=== PATIENT | male | born 1940 | race Caucasian/White ===

== ENCOUNTER 2024-11-19 10:19 | Outpatient (CLI) | payer MEDICARE, SELFPAY ==
--- NOTE | ~2024-11-19 | XR_ITS ---
XR cervical spine 4-5V Ordering provider: Elma Jackson History: . G95.9 - Disease of spinal cord, unspecified . Comparison: None. FINDINGS: VERTEBRAL BODIES: Normal height and alignment. No visible fracture or subluxation. The dens is intact . DISK SPACES: Narrowing of the disc spaces C5-C6 and C6-C7. Multilevel facet joint disease. Multilevel uncovertebral joint osteoarthritic changes. PARASPINOUS SOFT TISSUES: No prevertebral soft tissue swelling. Right carotid atherosclerotic changes . IMPRESSION: No acute osseous abnormality cervical spine. Multilevel degenerative disc disease. Reviewed, dictated and finalized at location A.
--- NOTE | ~2024-11-19 | CT_ITS ---
EXAMINATION: CT cervical spine wo con DATE: 11/19/2024 10:57 INDICATION: Disease of spinal cord TECHNIQUE: Computed tomography (CT) of the cervical spine was performed without intravenous contrast. Automated exposure control and iterative reconstruction technique were employed. The dose-length pro duct was 285.13 mGy-cm. COMPARISON: None FINDINGS: Alignment is normal. Vertebral body heights are normal. No fracture. Severe disc height loss with deg enerative endplate changes at C5-C6 and C6-C7. Additional mild disc height loss at C3-C4, C4-C5 and C 7-T1. Moderate disc height loss at T1-T2. Atherosclerotic calcifications at the bilateral carotid bul bs. Cervical soft tissues are otherwise unremarkable. Bilateral apices of lungs are clear. The follow ing disc levels are specifically discussed: C2-C3: There is mild bilateral uncovertebral joint osteoarthritis. There is mild right and severe lef t facet joint osteoarthritis. There is mild left neural foraminal stenosis. There is no central canal stenosis. C3-C4: Disc is mildly bulging. There is mild right and moderate left uncovertebral joint osteoarthrit is. There is moderate right and severe left facet joint osteoarthritis. There is mild bilateral neura l foraminal stenosis. There is mild central canal stenosis. C4-C5: Disc is bulging. There is mild left and moderate right uncovertebral joint osteoarthritis. The re is severe left and moderate to severe right facet joint osteoarthritis. There is mild right and mo derate left neural foraminal stenosis. There is moderate central canal stenosis. C5-C6: Posterior disc osteophyte complex. There is moderate left and severe right uncovertebral joint osteoarthritis. There is moderate left and severe right facet joint osteoarthritis. There is moderat e right and mild to moderate left neural foraminal stenosis. There is moderate central canal stenosis . C6-C7: Posterior disc osteophyte complex. There is moderate right and severe left uncovertebral joint osteoarthritis. There is moderate bilateral facet joint osteoarthritis. There is moderate bilateral neural foraminal stenosis. There is moderate central canal stenosis. C7-T1: There is mild bilateral uncovertebral joint osteoarthritis. There is severe bilateral facet pao int osteoarthritis. There is minimal bilateral neural foraminal stenosis. There is no central canal s tenosis. IMPRESSION: 1. Severe lower cervical spondylosis. Reviewed, dictated and finalized at location A.
== END 2024-11-19 10:20 | disposition home or self-care (01) ==
LOC: GOSHIMG 10:20
PROVIDERS: PCP Neurological Surgery; Visit Provider Nurse Practitioner Adult Health
DX: M50.322 Other cervical disc degeneration at C5-C6 level (principal); M50.323 Other cervical disc degeneration at C6-C7 level
CPT/HCPCS: 72050; 72125

== ENCOUNTER 2025-01-13 13:36 | Outpatient (CLI) | payer MEDICARE, SELFPAY ==
--- NOTE | ~2025-01-13 | MR_ITS ---
MRI of the lumbar spine Clinical History: Spinal stenosis Technique: Axial T2-weighted images, and sagittal T1-weighted, T2-weighted, and T2 fat-sat images wer e acquired. Findings: No fracture identified. There is 6 mm anterolisthesis of L4 over L5. No suspicious bone mar row signal reality seen. At L1-L2, there is advanced degenerative disc narrowing. There is disc bulge with severe facet arthro amber, resulting in severe spinal canal stenosis/thecal sac compression. There is severe bilateral ne ural foraminal compromise. At L2-L3, there is moderate degenerative disc narrowing. Disc bulge and severe facet arthropathy resu lt in severe spinal canal stenosis/thecal sac compression and severe bilateral neural foraminal narro wing. At L3-L4, there is advanced degenerative disc narrowing. Disc bulge and severe facet arthropathy resu lt in severe spinal canal stenosis/thecal sac compression and severe bilateral neural foraminal narro wing. At L4-L5, there is disc bulge/uncovering with severe facet arthropathy. There is severe spinal canal stenosis. There is moderate right neural foraminal narrowing, and mild left neural foraminal narrowin g. At L5-S1, there is disc bulge with moderate facet arthropathy. No daren central canal stenosis. There is moderate to severe bilateral neural foraminal narrowing. Paravertebral soft tissues are unremarkable. Impression: Severe degenerative spondylosis throughout the lumbar spine, with multilevel significant canal stenos is and neural foraminal narrowing. Please see details above. Reviewed, dictated and finalized at [facility]. Impression: Severe degenerative spondylosis throughout the lumbar spine, with multilevel si gnificant canal stenosis and neural foraminal narrowing. Please see details abo ve.
--- NOTE | ~2025-01-13 | XR_ITS ---
Lumbosacral Spine: AP and lateral views Clinical History: Pain Findings: There is dextroscoliosis. There is moderate degenerative disc narrowing throughout the lumb ar spine. There is severe facet arthropathy throughout the lumbar spine. No fracture evident. The sac roiliac joints are normally outlined. Impression: Moderate to severe degenerative spondylosis with dextroscoliosis. Reviewed, dictated and finalized at location . Impression: Moderate to severe degenerative spondylosis with dextroscoliosis.
== END 2025-01-13 13:37 | disposition home or self-care (01) ==
LOC: GOSHIMG 13:37
PROVIDERS: PCP Neurological Surgery; Visit Provider Neurological Surgery
DX: M48.062 Spinal stenosis, lumbar region with neurogenic claudication (principal); M47.896 Other spondylosis, lumbar region
CPT/HCPCS: 72110; 72148

== ENCOUNTER 2025-02-12 09:54 | Outpatient (CLI) | payer MEDICARE, SELFPAY ==
--- OUTSIDE RECORDS SUMMARY | 2025-02-12 09:57 | XMS_ITS | Encounter Summary ---
Author Organization [facility] Healthcare Address [address] [place] [address] Care Team Providers Care Receiver/Laborer Name Role Phone Vargas Noland MD Primary Care Provider [phone] Reason for Visit * Reason Onset Date Comments Additional Services Or Orders 02/05/2025 Encounter Details Date Type Department Care Team (Late st Contact Info) Description 02/05/2025 Telephone [facility] [address] [address] Vargas Noland MD [address] [place] [address] Additional Services Or Orders Social History Tobacco Use Types Packs/Day Years Used Date Smoking Tobacco: Never Smokeless Tobacco: Never Alcohol Use Standard Drinks/Week Comments No 0 (1 standard drink = 0.6 oz pur e alcohol) PHQ-2 Answer Date Recorded PHQ-2 Total Score (If total score is 3 or more points, staff should administer the PHQ-9) 0 02/05/2025 Sex and Gender Information Value Date Recorded Sex Assigned at Not on file Legal Sex Male 2:55 PM [employer] Gender Identity Not on file Sexual Orientation Not on file documented as of this encounter Miscellaneous Notes * Telephone Encounter - Ruthann Bhatti RN - 02/11/2025 8:21 AM CDT Order signed 02/05/2025; however, cannot fax order without supporting clinical documentation. 02/05/2025 Office Visit note is pending completion. FYDiane Noland * Telephone Encounter - Mely Chawla - 02/10/2025 2:42 PM CDT Call Back Caller???s Concern: patient called to see if there were any updates on the Rolator? Please let him know. Does message need to be routed? Yes-Action Needed * Addendum Note - Ruthann Bhatti RN - 02/05/2025 1:49 PM CDTAddended by: RUTHANN BHATTI on: 02/05/2025 01:49 PM Modules accepted: Orders * Telephone Encounter - Ruthann Bhatti RN - 02/05/2025 1:47 PM CDT Order pended for signature. Please include documentation of medical necessity in today's Office Visit notes. * Telephone Encounter - Yeni Spivey - 02/05/2025 1:09 PM CDT Call Back Caller???s Concern: Pt has spoken to insurance [facility] is on their list of accepted facilities. Ptsays insurance needs a requisition from the doctor to move forward with payment. Please contact pt with next steps. Does message need to be routed? Yes-Action Needed * Telephone Encounter - Ruthann Bhatti RN - 02/05/2025 12:56 PM CDT Returned call and spoke with patient. Instructed patient to call the number on the back of his insurance card to get the names of in-network durable medical equipment suppliers and contact the officewith the name of his preferred supplier. Patient verbalized understanding and was appreciative of assistance. * Telephone Encounter - Alva Villaseñor - 02/05/2025 12:47 PM CDT Additional Services or Orders Type of Service Requested:Equipment Reason for Request (e.g. condition/symptom, date of COVID exposure if applicable): Difficulty walking Details Regarding Additional Services (e.g. type of home health, type of equipment, type of test, etc.): Rollator transport chair with a seat Where will services be performed? (if outside of the practice, facility name, address, phone/fax offacility): To be recommended Additional Comments: Patient stated the rollator transport chair was discussed during his visit today. Patient would like it covered under his insurance if possible. Please contact patient to advise next steps to obtaining the equipment. Does message need to be routed? Yes-Action Needed documented in this encounter Plan of Treatment Not on file documented as of this encounter Visit Diagnoses Diagnosis Age-related physical debility- Primary Unsteady gait Abnormality of gait documented in this encounter Orders General Supply Count Last Ordered Date First Or dered Date WALKER 1 02/05/2025 documented in this encounter Care Teams Receiver/Laborer Relationship Specialty Start Date End Date [place] [address] PCP - General 10/10/15 documented as of this encounter
--- OUTSIDE RECORDS SUMMARY | 2025-02-12 09:58 | XMS_ITS | Clinical Summary ---
Author Organization [facility] Address [address] [place] [address] Care Team Providers Care Energy Analyst Name Role Phone Vargas Noland MD Primary Care Provider [phone] Allergies No known active allergies Medications multivitamin tablet tablet Take according to otnj-ebc-khplz er package directions 30 6 04/12/20 09 Active aspirin 81 mg enteric coated tablet Take 1 tablet (81 mg total) by mouth daily Active pyridoxine (VITAMIN B-6) 500 mg tablet Take 1 tablet (500 mg total) by mouth daily Active omega 1-ibj-xsg-fish oil (Fish OiL) 1,000 mg (120 mg-180 mg) capsule Active acyclovir (ZOVIRAX) 200 mg capsule Take 1 capsule (200 mg total) by mouth daily 06/05/20 24 Active potassium chloride ER 10 mEq CR tablet Take 1 tablet by mouth once daily 30 tablet 12/30/19 25 Active furosemide (LASIX) 40 mg tablet TAKE 1 TABLET BY MOUTH ONCE DAILY NEEDED FOR SWELLING 30 tablet 12/30/19 25 Active lisinopril-hyd roCHLOROthiazi de (ZESTORETIC) 20-25 mg per tablet Take 1 tablet by mouth once daily 90 tablet 01/05/20 25 Active pregabalin (LYRICA) 75 mg capsule Take 1 capsule (75 mg total) by mouth 2 (two) times a day 60 capsule 02/04/20 25 Active meloxicam (MOBIC) 7.5 mg tablet Take 1 tablet by mouth twice daily as needed for pain 60 tablet 02/02/20 25 Active pregabalin (LYRICA) 75 mg capsule Take 1 capsule by mouth twice daily 60 capsule 01/05/20 25 025 Discontinued meloxicam (MOBIC) 7.5 mg tablet Take 1 tablet by mouth twice daily as needed for pain 60 tablet 01/12/20 25 025 Discontinued Active Problems Problem Noted Date Diagnosed Date Cervical disc disease 02/11/2025 Preoperative clearance 02/11/2025 Gait instability 02/11/2025 Lipid screening 06/07/2024 Assessment & Plan (06/07/2024 8:31 PM DIGITAL CAMPAIGN MANAGER): Screenign labwork ordered and will follow response. Hand paresthesia 06/07/2024 Assessment & Plan (06/07/2024 8:33 PM DIGITAL CAMPAIGN MANAGER): Given symmetrical etiolgoy will check for cervical spine origin sourse and MRI ordered. Continues on lyrica for neuropathic pain. Monitor repsonse to course of steroid pack and will follow respnose. No evidenc eof vascular compromise. BMI 31.0-31.9,adult 06/07/2024 Assessment & Plan (06/07/2024 8:32 PM DIGITAL CAMPAIGN MANAGER): Encoruage 150min/week aerobic exericse. Healthy food chocies. Obesity (BMI 30.0-34.9) 06/07/2024 Assessment & Plan (06/07/2024 8:32 PM DIGITAL CAMPAIGN MANAGER): As above. Medicare annual wellness visit, subsequent 01/20 Assessment & Plan (01/21/2024 10:26 AM CDT): Focus of exam is preventative in nature. Reviewed immunizations, reviewed sun/skin cancer screneing. Reviewed age and comorbid appropriate screening. Reviewed fall prevnetion. Congratulate on active, healthy lifesytle. BETH (acute kidney injury) 01/21/2024 Assessment & Plan (01/21/2024 10:27 AM CDT): Stop furosemide and will montior response. Enocurage hydration and will montior repsonse. Hypertension, essential 01/21/2024 Assessment & Plan (06/07/2024 8:31 PM DIGITAL CAMPAIGN MANAGER): Reviewed use of furosemide for swellign and BP and continues on lisinopril/hctz and will follow response. Potassium aljivvzfrszgbx2g with use of fursoemide. Assessment & Plan (01/21/2024 10:27 AM CDT): Stable on lisinopril/hctz and stable on the exdellent regimen. WIll montio repsons.e Bilateral lower extremity edema 05/14/2023 Spinal stenosis of lumbar re gion with neurogenic claudication 02/19/2023 Assessment & Plan (01/21/2024 10:27 AM CDT): Continue f/u with pain management and chiropractor. Continues on lyrica 75mg bid and will follow response. Resume low dose meloxicam and will follow response. Spondylosis of lumbar region without myelopathy or radiculopathy 02/19/2023 Benign prostatic hypertrophy without urinary obs truction 11/14/2013 Overview (10/03/2016): BPH W/O URINARY OBSTRUCT Encounters Date Type Department Care Team Description 02/05/2025 11:15 AM CDT [facility] Visit [facility] [address] [address] Vargas Noland MD Preoperative clearance (Primary Dx); Cervical disc disease; BMI 31.0-31.9,adult; Obesity (BMI 30.0-34.9); Gait instability 02/05/2025 10:25 AM CDT Lab [facility] [address] [place] [id number] Preoperative examination; Diabetes mellitus type II, controlled 02/05/2025 Telephone [facility] [address] [address] Vargas Noland MD Additional Services Or Orders 02/03/2025 Telephone [facility] [address] [address] Vargas Noland MD 12/11/2024 Telephone [facility] [address] [place] [address] Vargas Noland MD Additional Services Or Orders (Rollator request ) from Last 3 Months Immunizations Immunization Administration Dates Next Due Influenza, Unspecified 07/24/2024(Deferr ed: Patient Refused),05/26/2024(Deferred: Patient Refused),03/01/2024(Deferred: Patient Refused),07/01/2023(Deferred: Patient Refused),06/28/2023(Deferred: Patient Refused),05/21/2022,08/18/2021(Deferred : Patient Refused),07/01/2021(Deferred: Patient Refused),07/05/2020(Deferred: Patient Refused),07/01/2020(Deferred: Patient Refused),07/01/2019(Deferred: Patient Refused),07/05/2017(Deferred: Patient Refused),07/02/2017(Deferred: Patient Refused),07/02/2016(Deferred: Patient Refused),07/02/2016(Deferred: Patient Refused) Pfizer SARS-CoV-2 Monovalent Vaccination (12+ Yrs) PURPLE 05/21/2022 Surgical History Surgery Date Site/Laterality Comments CATARACT EXTRACTION W/ INTRA OCULAR LENS IMPLANT Bilateral 15 months apart Family History Medical History Relation Name Comments No Known Problems Daughter Coronary artery disease Father Suzy nary artery disease; No Known Problems Son 1 COPD Son 2 Relation Name Status Comments Daughter Alive Father (Age 70) Son 1 Alive Son 2 Alive Social History Tobacco Use Types Packs/Day Years Used Date Smoking Tobacco: Never Smokeless Tobacco: Never Tobacco Cessation:Counseling Given: Not Answered Alcohol Use Standard Drinks/Week Comments No 0 (1 standard drink = 0.6 oz pur e alcohol) PHQ-2 Answer Date Recorded PHQ-2 Total Score (If total score is 3 or more points, staff should administer the PHQ-9) 0 02/05/2025 Sex and Gender Information Value Date Recorded Sex Assigned at Not on file Legal Sex Male 2:55 PM DIGITAL CAMPAIGN MANAGER Gender Identity Not on file Sexual Orientation Not on file Obstetrics History Last Filed Vital Signs Vital Sign Reading Time Taken Comments Blood Pressure 116/68 02/05/2025 11:13 AM CDT Pulse 73 02/05/2025 11:13 AM CDT Temperature 36.5 C (97.7 F) 02/05/2025 11:13 AM CDT Respiratory Rate 18 02/05/2025 11:13 AM CDT Oxygen Saturation 98% 02/05/2025 11:13 AM CDT room air Inhaled Oxygen Concentration - - Weight 93.9 kg (207 lb) 02/05/2025 11:13 AM CDT Height 172.7 cm (5' 7.99) 02/05/2025 11:13 AM C DT Body Mass Index 31.48 02/05/2025 11:13 AM CDT Plan of Treatment Health Maintenance Due Date Last Done Comments Albumin Creatinine Ratio, Urine 1938 Dilated Eye Exam 1938 Foot Exam 1938 DTaP/Tdap/Td Vaccine (1 - Tdap) 1949 Hepatitis B Screening 1956 Zoster Vaccine (1 of 2) 1988 Covid-19 Vaccine (5 - 2023-2 5 season) 2024 05/21/2022, 06/01/2021, 10/27/2020, Additional history exists Well Visit 65+ 01/20/2025 01/21/2024, 12/25/2022 Hemoglobin A1C 08/08/2025 02/05/2025 Depression Screening 02/05/2026 02/05/2025, 07/24/2024, 05/26/2024, Additional history exists Fall Risk Assessment 02/05/2026 02/05/2025, 07/24/2024, 05/26/2024, Additional history exists Lipid Panel 02/05/2026 02/05/2025, 07/02, 01/15/2024, Additional history exists eGFR 02/05/2026 02/05/2025, 07/02, 05/21/2024, Additional history exists Influenza Vaccine Discontinued 05/21/2022 Pneumococcal vaccine 65+ Discontinued Procedures Procedure Name Priority Date/Time Associated Diagnosis Comments ECG 12-LEAD Routine 02/11/2025 8:52 AM CDT Preoperative clearance EGFR Routine 02/05/2025 10:25 AM CDT Preoperative examination DIFFERENTIAL AUTO Routine 02/05/2025 10: 25 AM CDT Preoperative examination LIPID PANEL Routine 02/05/2025 10:25 AM CDT Diabetes mellitus type II, controlled HEMOGLOBIN A1C Routine 02/05/2025 10:25 AM CDT Diabetes mellitus type II, controlled COMPREHENSIVE METABOLIC PANEL Routine 02/05/2025 10:25 AM CDT Preoperative examination CBC WITH AUTO DIFFERENTIAL Routine 02/05/2025 10:25 AM CDT Preoperative examination from Last 3 Months Results * ECG 12-LEAD (02/11/2025 8:52 AM CDT) Narrative Vargas Noland MD - 02/11/2025 8:52 AM CDT Vargas Noland MD 02/11/2025 8:53 AM ECG 12 lead Date/Time: 02/11/2025 8:52 AM Performed by: Vargas Noland MD Authorized by: Vargas Noland MD Comparison: not compared with previous ECG Rhythm: sinus rhythm Rate: normal QRS axis: normal Q waves: V1 Comments: NO acute ischemic changes. POssible old changes. us Vargas Noland MD ECG ORDERABLES Edited Re sult - Final * (ABNORMAL) eGFR (02/05/2025 10:25 AM CDT) eGFR 43(L) >=60 mL/min/1. 73 m2 Comment: Interpretive Data Reference Interval Normal >/= 90 mL/min/1.73m2 Mildly decreased* 60 - 89 mL/min/1.73m2 Mildly to moderately decreased 45 - 59 mL/min/1.73m2 Moderately to severely decreased 30 - 44 mL/min/1.73m2 Severely decreased 15 - 29 mL/min/1.73m2 Kidney Failure < 15 mL/min/1.73m2 *Relative to young adult level Estimated glomerular filtration rate is determined by the 2020 CKD-EPI equation recommended by the National Kidney Foundation (A Unifying Approach to GFR Estimation: Recommendations of the NKF-ASK Task Force on Reassessing the Inclusion of Race in Diagnosing Kidney Disease, JASN 2020). The CKD-EPI equation should not be used for patients with unstable renal function and has not been validated in children and those over 70. Current interpretive data was last reviewed 2021. Testing performed by: [address], [address] Blood 02/05/2025 10:2 5 AM CDT 02/05/2025 3:13 PM CDT Vargas Noland MD LAB BLOOD ORDERABLES Sowmya amezquita Result [facility] ([place]) 1 [facility] [place] [address] * (ABNORMAL) Differential, auto (02/05/2025 10:25 AM CDT) Neutrophil abs 5.58 1.50 - 6.50 K/cumm Comment:Testing performed by : [address] [address] Imm gran abs 0.05 0.00 - 0.10 K/cumm [facility] ([place]) Comment:Testing performed by : [address], [address] Lymphocyte abs 1.40 0.80 - 3.30 K/cumm [facility] ([place]) Comment:Testing performed by : [address] [address] Monocyte abs 1.05(H) 0.20 - 0.80 K/cumm [facility] ([place]) Comment:Testing performed by : [facility], [address] [place] [address]., [address] Eosinophil abs 0.21 0.00 - 0.50 K/cumm [facility] ([place]) Comment:Testing performed by : [facility], [address], [place]., [address] Basophil abs 0.05 0.00 - 0.10 K/cumm [facility] ([place]) Comment:Testing performed by : [facility], [address] [place] [address]., [address] Neutrophil pct 66.9 % [facility] ([place]) Comment: Interpretive Data Percent cell count reference ranges are not reported, since discordance with absolute values may lead to misinterpretation of CBC data. Current Interpretive Data was last revised on 2017. Testing performed by: [address] [address] Imm gran pct 0.6 % [facility] ([place]) Comment: Interpretive Data Percent cell count reference ranges are not reported, since discordance with absolute values may lead to misinterpretation of CBC data. Current Interpretive Data was last revised on 2017. Testing performed by: [address] [address] Lymphocyte pct 16.8 % [facility] ([place]) Comment: Interpretive Data Percent cell count reference ranges are not reported, since discordance with absolute values may lead to misinterpretation of CBC data. Current Interpretive Data was last revised on 2017. Testing performed by: [address] [address] Monocyte pct 12.6 % [facility] ([place]) Comment: Interpretive Data Percent cell count reference ranges are not reported, since discordance with absolute values may lead to misinterpretation of CBC data. Current Interpretive Data was last revised on 2017. Testing performed by: [address] [address] Eosinophil pct 2.5 % [facility] ([place]) Comment: Interpretive Data Percent cell count reference ranges are not reported, since discordance with absolute values may lead to misinterpretation of CBC data. Current Interpretive Data was last revised on 2017. Testing performed by: [address], [address] Basophil pct 0.6 % [facility] ([place]) Comment: Interpretive Data Percent cell count reference ranges are not reported, since discordance with absolute values may lead to misinterpretation of CBC data. Current Interpretive Data was last revised on 2017. Testing performed by: [address], [address] Blood 02/05/2025 10:2 5 AM CDT 02/05/2025 2:32 PM CDT Vargas Noland MD LAB BLOOD ORDERABLES Sowmya bia Result [facility] ([place]) 1 [facility] [place] [address] * (ABNORMAL) CBC with auto differential (02/05/2025 10:25 AM CDT) WBC 8.34 3.80 - 9.90 K/cumm Comment:Testing performed by : [address], [address] Hgb 14.0 13.0 - 17.5 g/dL [facility] ([place]) Comment:Testing performed by : [address], [address] Hct 42.8 38.9 - 50.3 % [facility] ([place]) Comment:Testing performed by : [address], [address] Plt 214 150 - 400 K/cumm [facility] ([place]) Comment:Testing performed by : [address], [address] MPV 12.6(H) 9.1 - 12.3 fL [facility] ([place]) Comment:Testing performed by : [address], [address] RBC 4.38 4.30 - 5.80 M/cumm [facility] ([place]) Comment:Testing performed by : [address], [address] MCV 97.7(H) 81.3 - 96.4 fL [facility] ([place]) Comment:Testing performed by : [address], [address] MCH 32.0 27.1 - 33.3 pg [facility] ([place]) Comment:Testing performed by : [address] [place]., [address] MCHC 32.7 32.3 - 35.7 g/dL [facility] ([place]) Comment:Testing performed by : [facility], [address] [place] [address]., [address] RDW CV 12.9 11.1 - 14.9 % [facility] ([place]) Comment:Testing performed by : [facility], [address] [place] [address], [address] RDW SD 46.6 35.7 - 48.1 fL [facility] ([place]) Comment:Testing performed by : [facility], [address] [place] [address], [address] NRBC abs 0.00 0.00 - 0.01 K/cumm [facility] ([place]) Comment:Testing performed by : [facility], [address] [place] [address], [address] Blood 02/05/2025 10:2 5 AM CDT 02/05/2025 2:32 PM CDT Vargas Noland MD LAB BLOOD ORDERABLES Sowmya amezquita Result [facility] ([place]) 1 [facility] Department [place] [address] * (ABNORMAL) Hemoglobin A1c (02/05/2025 10:25 AM CDT) Hgb A1C 6.7(H) 4.0 - 5.6 % Comment:Testing performed by : [address] [address] Estimated Average Glucose 146 mg/dL [facility] ([place]) Comment: The ADA recommends reporting an estimated Average Glucose (eAG) with all Hemoglobin A1c results using the equation derived from a study of 507 normal and diabetic adults. Minority populations were underrepresented and children were not included. (Diabetes Care 31:5785-5855, 2008). The eAG is not equivalent to a fasting glucose. Testing performed by: [address], [address] Blood 02/05/2025 10:2 5 AM CDT 02/05/2025 2:32 PM CDT us Vargas Noland MD LAB BLOOD ORDERABLES Sowmya bia Result [facility] ([place]) 1 [facility] [place] [address] * (ABNORMAL) Lipid panel (02/05/2025 10:25 AM CDT) Cholesterol 220(H) 30 - 199 mg/dL Comment: Interpretive Data Ages < or = 19 years Acceptable: <170 mg/dL Borderline high: 170-199 mg/dL High: >or= 200 mg/dL Ages > or = 20 years Desirable: <200 mg/dL Borderline high: 200-239 mg/dL High: >or= 240 mg/dL Literature References: 1. Expert Panel on Integrated Guidelines for Cardiovascular Health and Risk Reduction in Children and Adolescents. Pediatrics 2011;128:S213 2. NCEP Expert Panel. Circulation 2004;110:227 Current Interpretive Data was last revised on 2018. Testing performed by: [address] [address] Triglycerides 148 <=149 mg/dL [facility] ([place]) Comment: Interpretive Data Ages < or = 9 years Acceptable: <75 mg/dL Borderline high: 75-99 mg/dL High: >or= 100 mg/dL Ages 10 to 20 years Acceptable: <90 mg/dL Borderline high: 90-129 mg/dL High: >or= 130 mg/dL Ages > or = 20 years Desirable: <150 mg/dL Borderline high: 150-199 mg/dL High: 200-499 mg/dL Very high: >or= 499 mg/dL Literature References: 1. Expert Panel on Integrated Guidelines for Cardiovascular Health and Risk Reduction in Children and Adolescents. Pediatrics 2011;128:S213 2. NCEP Expert Panel. Circulation 2004;110:227 Current Interpretive Data was last revised on 2018. Testing performed by: [facility], [address] [place] [address]., [address] HDL 41 >=40 mg/dL [facility] ([place]) Comment: Interpretive Data Ages < or = 19 years Acceptable: >45 mg/dL Borderline low: 40-45 mg/dL Low: <40 mg/dL Ages > or = 20 years Desirable: >or= 60 mg/dL Low: <40 mg/dL Literature References: 1. Expert Panel on Integrated Guidelines for Cardiovascular Health and Risk Reduction in Children and Adolescents. Pediatrics 2011;128:S213 2. NCEP Expert Panel. Circulation 2004;110:227 Current Interpretive Data was last revised on 2018. Testing performed by: [address] [address] LDL, calculated 152(H) <=129 mg/dL [facility] ([place]) Comment: Interpretive Data Ages < or = 19 years Acceptable: <110 mg/dL Borderline high: 110-129 mg/dL High: >or= 130 mg/dL Ages > or = 20 years Optimal: <100 mg/dL Near optimal: 100-129 mg/dL Borderline high: 130-159 mg/dL High: >160 mg/dL Calculated using the Yossi LDL-C estimating equation. This equation was implemented on 2024. Prior to this date LDL-C was estimated using the Friedewald equation. Literature References: 1. Expert Panel on Integrated Guidelines for Cardiovascular Health and Risk Reduction in Children and Adolescents. Pediatrics 2011;128:S213 2. NCEP Expert Panel. Circulation 2004;110:227 3. Yossi Hills et al. CHELSEA Cardiol. 2019October 29;5(5):540-548. doi: 10.1001/jamacardio.2020.0013 Current Interpretive Data was last revised on 2024. Testing performed by: [facility], [address] [place] [address]., [address] Non-HDL Cholesterol 179 mg/dL [facility] ([place]) Comment: Interpretive Data Ages < or = 19 years Acceptable: <120 mg/dL Borderline high: 120-144 mg/dL High: >145 mg/dL Ages > or = 20 years When triglycerides are >200 mg/dL, Non-HDL cholesterol is a secondary target of therapy with treatment goals that are 30 mg/dL greater than the LDL cholesterol target. Literature References: 1. Expert Panel on Integrated Guidelines for Cardiovascular Health and Risk Reduction in Children and Adolescents. Pediatrics 2011;128:S213 2. NCEP Expert Panel. Circulation 2004;110:227 Current Interpretive Data was last revised on 2018. Testing performed by: [facility], [address] [place] [address]., [address] Chol/HDL ratio 5 [facility] ([place]) Comment:Testing performed by : [facility], [address] [place] [address]., [address] Blood 02/05/2025 10:2 5 AM CDT 02/05/2025 2:32 PM CDT Vargas Noland MD LAB BLOOD ORDERABLES Sowmya l Result [facility] ([place]) 1 [facility] Department [place] [address] * (ABNORMAL) Comprehensive metabolic panel (02/05/2025 10:25 AM CDT) Sodium 140 135 - 145 mmol/L Comment:Testing performed by : [address], [address] Potassium, pl 4.0 3.3 - 4.9 mmol/L [facility] ([place]) Comment:Testing performed by : [address], [address] Chloride 100 97 - 110 mmol/L [facility] ([place]) Comment:Testing performed by : [address], [address] CO2 24 22 - 32 mmol/L [facility] ([place]) Comment:Testing performed by : [address], [address] Anion gap 16(H) 2 - 15 mmol/L [facility] ([place]) Comment:Testing performed by : [address], [address] BUN 54(H) 6 - 25 mg/dL [facility] ([place]) Comment:Testing performed by : [address], [address] Creatinine 1.56(H) 0.80 - 1.30 mg/dL [facility] ([place]) Comment:Testing performed by : [facility], [address], [place]., [address] Glucose 97 70 - 199 mg/dL [facility] ([place]) Comment: Interpretive Data Fasting glucose >/= 126 mg/dl is diagnostic for diabetes. Fasting is defined as no caloric intake for at least 8 hours. Fasting glucose between 100 mg/dl to 125 mg/dl is diagnostic of prediabetes. In a patient with classic symptoms of hyperglycemia or hyperglycemic crisis, a random glucose >/= 200 mg/dl is diagnostic for diabetes. In the absence of unequivocal hyperglycemia, results should be confirmed by repeat testing. The classification and Diagnosis of Diabetes Diabetes Care 2021; 46: S19-S40. Current interpretive data was last revised 2022. Testing performed by: [facility], [address] [place] [address]., [address] Calcium 9.6 8.5 - 10.3 mg/dL [facility] ([place]) Comment:Testing performed by : [address], [address] Bilirubin, total 0.4 0.1 - 1.2 mg/dL [facility] ([place]) Comment:Testing performed by : [address], [address] Protein, pl 7.1 6.5 - 8.5 g/dL [facility] ([place]) Comment:Testing performed by : [address], [address] Albumin 4.3 3.5 - 5.0 g/dL [facility] ([place]) Comment:Testing performed by : [address], [address] Alk phos 77 40 - 130 Units/L [facility] ([place]) Comment:Testing performed by : [address], [address] ALT 44 7 - 55 Units/L [facility] ([place]) Comment:Testing performed by : [address], [address] AST 43 10 - 50 Units/L [facility] ([place]) Comment:Testing performed by : [address], [address] Blood 02/05/2025 10:2 5 AM CDT 02/05/2025 2:32 PM CDT us Vargas Noland MD LAB BLOOD ORDERABLES Sowmya l Result [facility] ([place]) 1 [facility] [place] [address] from Last 3 Months Insurance A[employer] MEDICARE A[employer]NA MEDICARE Care Teams Energy Analyst Relationship Specialty Start Date End Date Vargas Noland MD [address] [place] [address] PCP - General 10/10/15
[2025-02-12 11:48] LABS: INR 1.0; Partial Thromboplastin Time 26.0 Seconds (22.3-36.8); Prothrombin Time 13.1 Seconds (11.1-14.7)
[2025-02-12 12:00] LABS: Add Urine Microscopic? YES; Appearance Urine Clear (Clear); Glucose Urine UA Negative (Negative); Leukocyte Esterase Ur 1+ LEU/UL (Negative); Need Manual Microscopic Reviewed; Nitrate Urine Negative (Negative); Non Pathogenic Casts 0-2; Specific Grav Ur 1.015 (1.001-1.035)
== END 2025-02-12 09:55 | disposition home or self-care (01) ==
PROVIDERS: PCP Family Medicine; Visit Provider Neurological Surgery
DX: M48.02 Spinal stenosis, cervical region (principal); Z01.818 Encounter for other preprocedural examination
CPT/HCPCS: 36415; 81001; 85610; 85730; 86850; 86900; 86901; 87086